=== PATIENT | female | born 1960 | race Native Hawaiian/Other Pacific Islander ===

== ENCOUNTER 2018-02-27 16:46 | Emergency (ER) | payer OTHER ==
[~2018-02-27] VITALS: Ht 157.5 cm; Wt 84.4 kg
[~2018-02-27 16:46] MED LIST: GABA300C2 PO; METOPROLOL25 M1 PO
[2018-02-27 18:14] LABS: PLATELET COUNT 222 K/uL (152-353)
[2018-02-27 18:16] LABS: POTASSIUM 3.9 mmol/L (3.6-5.2)
[2018-02-27 19:50] VITALS: BP 148/82; TEMP 97.2
== END 2018-02-27 19:50 | disposition home or self-care (01) ==
LOC: ED 16:46
PROVIDERS: Specialist
DX: R42 Dizziness and giddiness (principal); H66.91 Otitis media, unspecified, right ear; N39.0 Urinary tract infection, site not specified
CPT/HCPCS: 36415; 80048; 81000; 85027; 87086; 87088; 96365; 96372; 99284; J0690; J3230; J3411; J3475; J3490